=== PATIENT | female | born 1995 | race African-American/Black ===

== ENCOUNTER 2017-05-30 10:01 | Emergency (ER) | payer SELFPAY ==
[~2017-05-30] VITALS: Ht 162.6 cm; Wt 65.0 kg
[2017-05-30 10:02] VITALS: BP 134/85; PULSE 88; RESP 17; TEMP 98.7; O2SAT 96
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
[2017-05-30] MEDS ORDERED: IBUPROFEN 800 MG TAB PO ONE (10:15)
[2017-05-30] MEDS ORDERED: BACT800T5 PO (10:59)
[2017-05-30] MEDS ORDERED: CEPH-460 PO (10:59)
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
== END 2017-05-30 11:23 | disposition home or self-care (01) ==
LOC: NEPK 10:01
DX: M60.261 Foreign body granuloma of soft tissue, not elsewhere classified, right lower leg (principal); J45.909 Unspecified asthma, uncomplicated; F90.9 Attention-deficit hyperactivity disorder, unspecified type
CPT/HCPCS: 73590; 86403; 87070; 87186; 87205; 99284

== ENCOUNTER 2017-06-25 11:09 | Emergency (ER) | payer SELFPAY ==
[~2017-06-25] VITALS: Ht 165.1 cm; Wt 60.0 kg
[~2017-06-25 11:09] MED LIST: BACT800T5 PO; CEPH-460 PO
[2017-06-25 11:11] VITALS: BP 133/95; PULSE 98; RESP 18; TEMP 97.8; O2SAT 98
[2017-06-25 12:10] LABS: BACTERIA, URINE RARE /hpf; BLOOD, URINE LARGE (NEG); GLUCOSE,URINE NEG (NEG); KETONE, URINE NEG (NEG); NITRITE,URINE NEG (NEG); SQUAMOUS EPITHELIAL CELL URINE 18 /hpf (0-5); URINE COLOR LIGHT-RED (YELLW/STRAW)
[2017-06-25 12:11] LABS: COMMENT (UR) CULTURE INDICATED; CULTURE IF INDICATED CULTURE INDICATED
[2017-06-25] MEDS ORDERED: BACT800T5 PO (12:17)
--- NOTE | 2017-06-25 12:20 | PD ---
HPI Chief Complaint: Complaint Time Seen by Provider: 12:16 Travel History International Travel<30 days: No Contact w/Intl Traveler<30days: No Traveled to known affect area: No History of Present Illness HPI 21-year-old female presents for evaluation. For 2-3 days she has had dysuria, urinary hesitancy and cloudy urine. She denies any abdominal pain, flank pain, vaginal bleeding or discharge, nausea or vomiting, fevers or chills. She's had urinary tract infections in the past and this feels similar. She has no other complaints at this time. [facility] Past Medical History ADHD: Yes Asthma: Yes Developmental Delay: No Diminished Hearing: No Immunizations Current: Yes ?: Not Social History Alcohol Use: No Tobacco Use: No Substance Use: No Allergies-Medications (Allergen,Severity, Reaction): Coded Allergies: No Known Allergies (Verified Adverse Reaction, Unknown, 06/25/17) Reported Meds & Prescriptions Reported Meds & Active Scripts Active Bactrim DS (Sulfamethoxazole-Trimethoprim) 800-160 Mg Tab 1 Tab PO BID Keflex (Cephalexin) 500 Mg Cap 500 Mg PO Q6H 5 Days Bactrim DS (Sulfamethoxazole-Trimethoprim) 800-160 Mg Tab 1 Tab PO BID Review of Systems Except as stated in HPI: all other systems reviewed are Neg Physical Exam Narrative GENERAL: Well-nourished female in no acute distress SKIN: Warm and dry. HEAD: Atraumatic. Normocephalic. EYES: Pupils equal and round. No scleral icterus. No injection or drainage. ENT: No nasal bleeding or discharge. Mucous membranes pink and moist. NECK: Trachea midline. No JVD. CARDIOVASCULAR: Regular rate and rhythm. No murmur appreciated. RESPIRATORY: No accessory muscle use. Clear to auscultation. Breath sounds equal bilaterally. GASTROINTESTINAL: Abdomen soft, non-tender, nondistended. Hepatic and splenic margins not palpable. MUSCULOSKELETAL: No obvious deformities. No clubbing. No cyanosis. No edema. NEUROLOGICAL: Awake and alert. No obvious cranial nerve deficits. Motor grossly within normal limits. Normal speech. PSYCHIATRIC: Appropriate mood and affect; insight and judgment normal. Data Data Last Documented VS Vital Signs Date Time Temp Pulse Resp B/P (MAP) Pulse Ox O2 Delivery O2 Flow Rate FiO2 06/25/17 11:11 97.8 98 18 133/95 (108) 98 Room Air Orders Orders Urinalysis - C+S If Indicated (06/25/17 11:27) Gc And Chlamydia Pcr (06/25/17 11:27) Ed Urine Pregnancytest Poc (06/25/17 11:37) Urine Culture (06/25/17 11:32) Ed Discharge Order (06/25/17 12:16) Labs Laboratory Tests Test 06/25/17 11:32 Urine Color LIGHT-RED Urine Turbidity CLOUDY Urine pH 6.0 Urine Specific [place] 1.024 Urine Protein 100 mg/dL Urine Glucose (UA) NEG mg/dL Urine Ketones NEG mg/dL Urine Occult Blood LARGE Urine Nitrite NEG Urine Bilirubin NEG Urine Urobilinogen LESS THAN 2.0 MG/DL Urine Leukocyte Esterase LARGE Urine RBC /hpf Urine WBC /hpf Urine WBC Clumps OCC Urine Squamous Epithelial Cells 18 /hpf Urine Bacteria RARE /hpf Microscopic Urinalysis Comment CULTURE INDICATED MDM Medical Decision Making Medical Screen Exam Complete: Yes Emergency Medical Condition: Yes Medical Record Reviewed: Yes Differential Diagnosis Cystitis, pyelonephritis, cervicitis, pelvic inflammatory disease Narrative Course The patient's symptoms and urinalysis are consistent with urinary tract infection. Pending urine culture results she is being discharged with Bactrim. Diagnosis Primary Impression: Cystitis Additional Instructions: Medication as prescribed. Stay well hydrated. Return for any emergent medical conditions. Med/Other Pt SpecificInfo: Prescription(s) given Scripts Sulfamethoxazole-Trimethoprim (Bactrim DS) 800-160 Mg Tab 1 TAB PO BID for Infection, #14 TAB 0 Refills Prov: Marcus Baires MD 06/25/17 Disposition: 01 DISCHARGE HOME Condition: Stable Lucio Slaughter Jun 25, 2017 12:20
[2017-06-25 12:34] VITALS: BP 124/74
== END 2017-06-25 12:39 | disposition home or self-care (01) ==
LOC: NEPD 11:09
DX: N30.00 Acute cystitis without hematuria (principal); F90.9 Attention-deficit hyperactivity disorder, unspecified type; J45.909 Unspecified asthma, uncomplicated
CPT/HCPCS: 81001; 84703; 87086; 99283

== ENCOUNTER 2017-06-28 22:36 | Emergency (ER) | payer SELFPAY ==
[~2017-06-28] VITALS: Ht 160 cm; Wt 65.0 kg
[2017-06-28 22:38] VITALS: BP 122/78; PULSE 108; RESP 18; TEMP 99; O2SAT 98
--- NOTE | 2017-06-29 00:32 | PD ---
HPI Chief Complaint: Skin Problem Time Seen by Provider: 23:07 Travel History International Travel<30 days: No Contact w/Intl Traveler<30days: No Traveled to known affect area: No History of Present Illness HPI : Patient has 2 papules bumps on her vagina labia minora. they are on both left and right which lowers my suspicion for herpes, Folliculitis from shaving her inner vagina appearance there are cut hairs on inside of her mucous area GENERAL Her general appearance is nontoxic no signs of infection systemic SKIN: Warm and dry. Has a few papules on the introitus of her vagina that are bilateral they do not look like herpetic outbreak and there is no lymphadenopathy of her groin lymph nodes HEAD: Atraumatic. Normocephalic. EYES: Pupils equal and round. No scleral icterus. No injection or drainage. ENT: No nasal bleeding or discharge. Mucous membranes pink and moist. NECK: Trachea midline. No JVD. CARDIOVASCULAR: Regular rate and rhythm. RESPIRATORY: No accessory muscle use. Clear to auscultation. Breath sounds equal bilaterally. GASTROINTESTINAL: Abdomen soft, non-tender, nondistended. Hepatic and splenic margins not palpable. MUSCULOSKELETAL: Extremities without clubbing, cyanosis, or edema. No obvious deformities. NEUROLOGICAL: Awake and alert. No obvious cranial nerve deficits. Motor grossly within normal limits. Five out of 5 muscle strength in the arms and legs. Normal speech. PSYCHIATRIC: Appropriate mood and affect; insight and judgment normal. PFSH Past Medical History ADHD: Yes Asthma: Yes Developmental Delay: No Diminished Hearing: No Immunizations Current: Yes ?: Not LMP: 06/01/17 Past Surgical History Surgical History: No Previous Surgery Social History Alcohol Use: No Tobacco Use: Yes Substance Use: No Allergies-Medications (Allergen,Severity, Reaction): Coded Allergies: No Known Allergies (Verified Adverse Reaction, Unknown, 06/28/17) Reported Meds & Prescriptions Reported Meds & Active Scripts Active Bacitracin Topical 500 Unit/Gm Oint 1 Applic TOPICAL BID Bactrim DS (Sulfamethoxazole-Trimethoprim) 800-160 Mg Tab 1 Tab PO BID Keflex (Cephalexin) 500 Mg Cap 500 Mg PO Q6H 5 Days Bactrim DS (Sulfamethoxazole-Trimethoprim) 800-160 Mg Tab 1 Tab PO BID Physical Exam Narrative GENERAL: Patient has bumps on her vagina. Her general appearance is nontoxic no signs of infection systemic SKIN: Warm and dry. Has a few papules on the introitus of her vagina that are bilateral they do not look like herpetic outbreak and there is no lymphadenopathy of her groin lymph nodes HEAD: Atraumatic. Normocephalic. EYES: Pupils equal and round. No scleral icterus. No injection or drainage. ENT: No nasal bleeding or discharge. Mucous membranes pink and moist. NECK: Trachea midline. No JVD. CARDIOVASCULAR: Regular rate and rhythm. RESPIRATORY: No accessory muscle use. Clear to auscultation. Breath sounds equal bilaterally. GASTROINTESTINAL: Abdomen soft, non-tender, nondistended. Hepatic and splenic margins not palpable. MUSCULOSKELETAL: Extremities without clubbing, cyanosis, or edema. No obvious deformities. NEUROLOGICAL: Awake and alert. No obvious cranial nerve deficits. Motor grossly within normal limits. Five out of 5 muscle strength in the arms and legs. Normal speech. PSYCHIATRIC: Appropriate mood and affect; insight and judgment normal. Data Data Last Documented VS Vital Signs Date Time Temp Pulse Resp B/P (MAP) Pulse Ox O2 Delivery O2 Flow Rate FiO2 06/28/17 22:38 99.0 108 18 122/78 (93) 98 MDM Medical Decision Making Medical Screen Exam Complete: Yes Emergency Medical Condition: Yes Medical Record Reviewed: Yes Differential Diagnosis folliculitis vs Herpetic out break vs imetigo staph Narrative Course Physical exam shows that she has a papule on the left labia majora the right side has a clear white papule the other side also has a papule bilateral reduces the thought that it could be herpes as it is bilateral notches unilateral and there is no lymphadenopathy in the inguinal nodes Diagnosis Primary Impression: Folliculitis Patient Instructions: Folliculitis (ED), General Instructions Scripts Bacitracin Topical (Bacitracin Topical) 500 Unit/Gm Oint 1 APPLIC TOPICAL BID for Infection, #30 GM 0 Refills Prov: Salvador Asencio MD 06/29/17 Disposition: 01 DISCHARGE HOME Condition: Good Salvador Asencio MD Jun 29, 2017 00:32
[2017-06-29] MEDS ORDERED: BACI500O9 TOPICAL (00:36)
== END 2017-06-29 00:52 | disposition home or self-care (01) ==
LOC: NEPE 22:36
DX: L73.9 Follicular disorder, unspecified (principal); F90.9 Attention-deficit hyperactivity disorder, unspecified type; J45.909 Unspecified asthma, uncomplicated; Z72.0 Tobacco use
CPT/HCPCS: 99283

== ENCOUNTER 2017-08-29 06:02 | Emergency (ER) | payer MEDICAID ==
[~2017-08-29] VITALS: Ht 162.6 cm; Wt 61.4 kg
[~2017-08-29 06:02] MED LIST changes: +BACI500O9 TOPICAL
[2017-08-29 06:05] VITALS: BP 93/59; PULSE 89; RESP 20; TEMP 98.6
[2017-08-29] MEDS ORDERED: SODIUM CHLORIDE 0.9% FLUSH 10 ML FLUSH IV FLUSH PRN (06:15)
[2017-08-29] MEDS ORDERED: SODIUM CHLOR 0.9% 1000 ML INJ 1,000 ML IV SCH (06:15)
[2017-08-29 06:17] VITALS: O2SAT 99
[2017-08-29] MEDS ORDERED: ONDANSETRON HCL 4 MG/2 ML VIAL IV PUSH ONE (06:30)
--- NOTE | 2017-08-29 06:30 | PD ---
HPI . Dizziness Chief Complaint: Dizziness Time Seen by Provider: 06:15 Travel History International Travel<30 days: No Contact w/Intl Traveler<30days: No Traveled to known affect area: No History of Present Illness HPI 21-year-old female complains of lightheadedness, upper respiratory congestion, nausea and generalized malaise since last night, patient awakened this morning and felt very dizzy, lightheaded upon standing. Patient presented via EMS, IV established and 500 cc normal saline given en route. Patient has marginal improvement after IV fluids. Patient denies any quantified fever, denies any kenneth vomiting no hematemesis melena or hematochezia. Patient has no diarrhea. Patient has positive positive ill contacts with influenza, no significant travel history, no recent antibiotic use, no visitation anywhere in a hospital or group home setting. Patient denies any idiosyncratic food intake PFSH Past Medical History Narrative Medical Past medical history reviewed ADHD: Yes Developmental Delay: No Diminished Hearing: No Immunizations Current: Yes Tetanus Vaccination: < 5 Years Influenza Vaccination: No ?: Not LMP: 08/24/17 Past Surgical History Surgical History: No Previous Surgery Social History Alcohol Use: No Tobacco Use: Yes Substance Use: No Allergies-Medications (Allergen,Severity, Reaction): Coded Allergies: No Known Allergies (Verified Adverse Reaction, Unknown, 06/28/17) Reported Meds & Prescriptions Reported Meds & Active Scripts Active Narrative Medication Allergies and medications reviewed Review of Systems Except as stated in HPI: all other systems reviewed are Neg General / Constitutional: No: Fever Eyes: No: Visual changes HENT: Positive: Lightheadedness, No: Headaches, Vertigo Cardiovascular: No: Chest Pain or Discomfort Respiratory: No: Shortness of Breath Gastrointestinal: Positive: Nausea, No: Vomiting, Diarrhea, Abdominal Pain Genitourinary: No: Dysuria Musculoskeletal: No: Pain Skin: No Rash Neurologic: No: Weakness Psychiatric: No: Depression Endocrine: No: Polydipsia Hematologic/Lymphatic: No: Easy Bruising Physical Exam Narrative GENERAL: Awake alert oriented 3 no acute distress SKIN: Warm and dry. Color is normal no diaphoresis cyanosis or pallor HEAD: Atraumatic. Normocephalic. EYES: Pupils equal and round. No scleral icterus. No injection or drainage. ENT: No nasal bleeding or discharge. Mucous membranes pink and moist. NECK: Trachea midline. No JVD. Supple nontender full range of motion CARDIOVASCULAR: Regular rate and rhythm. S1-S2 no murmurs rubs or gallops RESPIRATORY: No accessory muscle use. Clear to auscultation. Breath sounds equal bilaterally. GASTROINTESTINAL: Abdomen soft, non-tender, nondistended. Hepatic and splenic margins not palpable. MUSCULOSKELETAL: Extremities without clubbing, cyanosis, or edema. No obvious deformities. NEUROLOGICAL: Awake and alert. No obvious cranial nerve deficits. Motor grossly within normal limits. Five out of 5 muscle strength in the arms and legs. Normal speech. PSYCHIATRIC: Appropriate mood and affect; insight and judgment normal. Data Data Last Documented VS Vital Signs Date Time Temp Pulse Resp B/P (MAP) Pulse Ox O2 Delivery O2 Flow Rate FiO2 08/29/17 06:17 99 Room Air 08/29/17 06:05 98.6 89 20 93/59 (70) Orders Orders Beta Hcg (Quant/Titer) (08/29/17 06:15) Complete Blood Count With Diff (08/29/17 06:15) Comprehensive Metabolic Panel (08/29/17 06:15) Urinalysis - C+S If Indicated (08/29/17 06:15) Iv Access Insert/Monitor (08/29/17 06:15) Ecg Monitoring (08/29/17 06:15) Oximetry (08/29/17 06:15) Sodium Chlor 0.9% 1000 Ml Inj (Ns 1000 M (08/29/17 06:15) Sodium Chloride 0.9% Flush (Ns Flush) (08/29/17 06:15) Influenzae A/B Antigen (08/29/17 06:19) Ondansetron Inj (Zofran Inj) (08/29/17 06:30) [facility] Medical Decision Making Medical Screen Exam Complete: Yes Emergency Medical Condition: Yes Medical Record Reviewed: Yes Differential Diagnosis Influenza, dehydration, , upper respiratory infection, viral syndrome Narrative Course All labs pending, patient being treated with Zofran, IV fluids. Trung Matos MD Aug 29, 2017 06:30
[2017-08-29 06:45] LABS: AUTOMATED NEUTROPHIL # 12.2 TH/MM3 (1.8-7.7); BASOPHIL % 0.2 % (0.0-2.0); EOSINOPHIL # 0.1 TH/MM3 (0-0.4); EOSINOPHIL % 0.8 % (0.0-4.0); HEMATOCRIT 34.6 % (35.0-46.0); HEMOGLOBIN 11.4 GM/DL (11.6-15.3); MEAN CORPUSCULAR HEMOGLOBIN 26.6 PG (27.0-34.0); MEAN CORPUSCULAR HGB CONC 32.9 % (32.0-36.0); MEAN PLATELET VOLUME 8.3 FL (7.0-11.0); MONO % 6.3 % (0.0-8.0); MONOCYTE # 0.9 TH/MM3 (0-0.9); NEUT % 85.7 % (16.0-70.0); PLATELET COUNT 372 TH/MM3 (150-450); RED BLOOD COUNT 4.26 MIL/MM3 (4.00-5.30); RED CELL DISTRIBUTION WIDTH 15.7 % (11.6-17.2); WHITE BLOOD COUNT 14.2 TH/MM3 (4.0-11.0)
[2017-08-29 06:57] LABS: ALBUMIN 3.4 GM/DL (3.4-5.0); ALT (GPT) 16 U/L (9-42); AST (GOT) 9 U/L (16-38); BICARBONATE 23.2 MEQ/L (21.0-32.0); BLOOD UREA NITROGEN 9 MG/DL (7-18); CHLORIDE 109 MEQ/L (98-107); CREATININE 0.82 MG/DL (0.50-1.00); GLOMERULAR FILTRATION RATE 109 ML/MIN (>89); GLUCOSE,RANDOM 101 MG/DL (74-106); SODIUM (NA) 142 MEQ/L (136-145)
[2017-08-29 07:01] LABS: ALKALINE PHOSPHATASE 75 U/L (45-117); TOTAL BILIRUBIN ADULT 0.3 MG/DL (0.2-1.0); TOTAL PROTEIN 6.9 GM/DL (6.4-8.2)
[2017-08-29 08:13] VITALS: BP 101/58; PULSE 93; RESP 16; O2SAT 97
--- NOTE | 2017-08-29 09:46 | PD ---
Data Data Last Documented VS Vital Signs Date Time Temp Pulse Resp B/P (MAP) Pulse Ox O2 Delivery O2 Flow Rate FiO2 08/29/17 08:13 93 16 101/58 (72) 97 Room Air 08/29/17 06:05 98.6 Orders Orders Beta Hcg (Quant/Titer) (08/29/17 06:15) Complete Blood Count With Diff (08/29/17 06:15) Comprehensive Metabolic Panel (08/29/17 06:15) Urinalysis - C+S If Indicated (08/29/17 06:15) Iv Access Insert/Monitor (08/29/17 06:15) Ecg Monitoring (08/29/17 06:15) Oximetry (08/29/17 06:15) Sodium Chlor 0.9% 1000 Ml Inj (Ns 1000 M (08/29/17 06:15) Sodium Chloride 0.9% Flush (Ns Flush) (08/29/17 06:15) Influenzae A/B Antigen (08/29/17 06:19) Ondansetron Inj (Zofran Inj) (08/29/17 06:30) Labs Laboratory Tests Test 08/29/17 06:24 White Blood Count 14.2 TH/MM3 Red Blood Count 4.26 MIL/MM3 Hemoglobin 11.4 GM/DL Hematocrit 34.6 % Mean Corpuscular Volume 81.0 FL Mean Corpuscular Hemoglobin 26.6 PG Mean Corpuscular Hemoglobin Concent 32.9 % Red Cell Distribution Width 15.7 % Platelet Count 372 TH/MM3 Mean Platelet Volume 8.3 FL Neutrophils (%) (Auto) 85.7 % Lymphocytes (%) (Auto) 7.0 % Monocytes (%) (Auto) 6.3 % Eosinophils (%) (Auto) 0.8 % Basophils (%) (Auto) 0.2 % Neutrophils # (Auto) 12.2 TH/MM3 Lymphocytes # (Auto) 1.0 TH/MM3 Monocytes # (Auto) 0.9 TH/MM3 Eosinophils # (Auto) 0.1 TH/MM3 Basophils # (Auto) 0.0 TH/MM3 CBC Comment DIFF FINAL Differential Comment Blood Urea Nitrogen 9 MG/DL Creatinine 0.82 MG/DL Random Glucose 101 MG/DL Total Protein 6.9 GM/DL Albumin 3.4 GM/DL Calcium Level 8.0 MG/DL Alkaline Phosphatase 75 U/L Aspartate Amino Transf (AST/SGOT) 9 U/L Alanine Aminotransferase (ALT/SGPT) 16 U/L Total Bilirubin 0.3 MG/DL Sodium Level 142 MEQ/L Potassium Level 3.2 MEQ/L Chloride Level 109 MEQ/L Carbon Dioxide Level 23.2 MEQ/L Anion Gap 10 MEQ/L Estimat Glomerular Filtration Rate 109 ML/MIN Human Chorionic Gonadotropin, Quant LESS THAN 1 MIU/ML MDM Supervised Visit with BETH: No Narrative Course Case checked out to me by the night physician at 7 AM Patient has been hydrated and her blood pressures improved. I reevaluated her She is no longer dizzy or lightheaded CBC shows minor nonspecific leukocytosis Flu test is negative Metabolic profile shows nothing emergent, minor hypokalemia Patient is feeling well and stable for outpatient follow-up Diagnosis Primary Impression: Dizziness of unknown cause Additional Impression: Acute viral syndrome Additional Instruction: The patient was advised to follow up with their physician and return if they worsen. Med/Other Pt SpecificInfo: Other Disposition: 01 DISCHARGE HOME Condition: Stable Marcus Baires MD Aug 29, 2017 09:46
[2017-08-29 09:57] VITALS: BP 105/60; PULSE 90; RESP 16; O2SAT 98
[2017-08-29 10:07] VITALS: BP 118/89
== END 2017-08-29 10:14 | disposition home or self-care (01) ==
LOC: NEPC 06:02
DX: B34.9 Viral infection, unspecified (principal); R42 Dizziness and giddiness; F90.9 Attention-deficit hyperactivity disorder, unspecified type; Z72.0 Tobacco use
CPT/HCPCS: 80053; 84702; 85025; 87804; 96361; 96374; 99284; J2405; J7030